=== PATIENT | female | born 1975 | race Two or more races ===

== ENCOUNTER 2025-01-10 09:16 | Emergency (ER) | payer OTHER ==
[~2025-01-10] VITALS: Ht 165.1 cm; Wt 107.5 kg
[2025-01-10] MEDS ORDERED: SYNTHROID137 MCG PO (09:23)
[2025-01-10] MEDS ORDERED: TRELEGY ELLIPT1 EAC1 IH (09:23)
[2025-01-10] MEDS ORDERED: MONTELUKAST SODI4 M1 (09:24)
[2025-01-10] MEDS ORDERED: SYMBICORT 16010.2 GM (09:24)
[2025-01-10] MEDS ORDERED: MOUNJARO10 MG/0.5 SQ (09:25)
[2025-01-10] MEDS ORDERED: DEXAMETHASONE SODIUM PHOSPHATE 4 MG/ML VIAL IM ONE (10:45)
[2025-01-10] MEDS ORDERED: KETOROLAC TROMETHAMINE 60 MG VIAL IM ONE (10:45)
== END 2025-01-10 12:09 ==
LOC: ER 09:16
DX: H92.02 Otalgia, left ear (principal); E03.8 Other specified hypothyroidism; Z91.013 Allergy to seafood

== ENCOUNTER 2025-01-14 11:15 | Outpatient (CLI) | payer OTHER ==
[~2025-01-14 11:15] MED LIST: MONTELUKAST SODI4 M1; MOUNJARO10 MG/0.5 SQ; SYMBICORT 16010.2 GM; SYNTHROID137 MCG PO; TRELEGY ELLIPT1 EAC1 IH
== END 2025-01-14 11:22 | disposition home or self-care (01) ==
LOC: MAMO-SONO 11:15
PROVIDERS: ATTEND Specialist
DX: N60.01 Solitary cyst of right breast (principal); N60.02 Solitary cyst of left breast; N83.291 Other ovarian cyst, right side